=== PATIENT | female | born 1960 | race American Indian/Alaskan Native ===

== ENCOUNTER 2017-04-21 11:11 | Outpatient (CLI) | payer SELFPAY ==
--- NOTE | 2017-04-21 12:01 | Mammography Report ---
Screening mammogram: Tomomammography in CC and lateral projections with 2-D compiled compression images are obtained. The patient has a history of prior surgical biopsy of the right breast which she indicates having precancerous findings. There is a scar retraction of the retroareolar right breast with a few dystrophic appearing calcifications. There is no mass. The overall fibroglandular pattern bilaterally is heterogeneous and otherwise relatively symmetric in distribution. The left breast pattern is generally unremarkable. CAD used. Impression: Postoperative changes of the right breast. No currently suspicious findings. Recommendation: Prior exam in 2016 is being requested for comparison before final recommendation. BI-RADS CATEGORY: 0 = Needs additional imaging evaluation ACR BI-RADS MAMMOGRAPHIC CODES: 0 = Needs additional imaging evaluation; 1 = Negative; 2 = Benign; 3 = Probably benign; 4 = Suspicious; 5 = Malignant; 6 = Known biopsy-proven malignancy COMMENT: 1. Dense breast tissue, i.e., adenosis, fibrocystic changes, etc., may obscure an underlying neoplasm. 2. Approximately 10% of cancers are not detected with mammography. 3. A negative mammography report should not delay biopsy if a clinically suspicious mass is present.
== END 2017-04-21 11:12 | disposition home or self-care (01) ==
LOC: MAMMO 11:11
PROVIDERS: ATTEND Internal Medicine
DX: Z12.31 Encounter for screening mammogram for malignant neoplasm of breast (principal)
CPT/HCPCS: 77063; G0202; 77067